=== PATIENT | female | born 1955 | race African-American/Black ===

== ENCOUNTER 2021-02-23 05:50 | Inpatient (IN) | payer MEDICARE ==
[2021-02-20 12:43] LABS: BASOPHILS # (AUTO) 0.1 (0.0-0.1); EOSINOPHILS # (AUTO) 0.4 (0.0-0.4); EOSINOPHILS % 4.5 % (0.0-6.0); HEMATOCRIT 31.7 % (34.2-44.1); HEMOGLOBIN 9.6 g/dL (12.0-16.0); LYMPHOCYTES # (AUTO) 2.5 (1.0-3.2); LYMPHOCYTES % 27.7 % (18.0-39.1); MEAN CORPUSCULAR HEMOGLOBIN 25.5 pg (28-32); MEAN CORPUSCULAR HGB CONC 30.3 g/dL (31-35); MEAN CORPUSCULAR VOLUME 84.1 fL (81-99); MONOCYTES # (AUTO) 0.8 (0.2-0.8); MONOCYTES % 8.3 % (4.4-11.3); NEUTROPHILS # (AUTO) 5.3 (2.1-6.9); NEUTROPHILS % 58.1 % (38.7-80.0); PLATELET COUNT 299 x10e3/uL (140-360); RED BLOOD COUNT 3.77 x10e6/uL (3.6-5.1); RED CELL DISTRIBUTION WIDTH 16.7 % (11.7-14.4)
[2021-02-20 13:04] LABS: CALCIUM 9.5 mg/dL (8.4-10.2); CREATININE, SERUM 1.64 mg/dL (0.57-1.11)
[~2021-02-23] VITALS: Ht 160 cm; Wt 127.0 kg
[~2021-02-23 05:50] MED LIST: AMLODIPINE BESY10 MG PO; ASPIRIN81 MG PO; FUROSEMIDE40 MG PO; IRBESARTAN150 MG PO; PRAVASTATIN SOD10 MG PO; TRESIBA FL200 UNIT/1 SC
[2021-02-23] MEDS ORDERED: LEVOFLOXACIN 500MG/D5W 100ML 100 ML IV ONE (06:35)
[2021-02-23] MEDS ORDERED: HYDROGEN PEROXIDE 120 ML BTL ONE (06:48)
[2021-02-23] MEDS ORDERED: BUPIVACAINE 0.25% 30ML SDV ONE (06:48)
[2021-02-23] MEDS ORDERED: ONDANSETRON HCL INJ 2MG/ML 2ML 2 MG/ML VIAL ONE (08:59)
[2021-02-23] MEDS ORDERED: METOCLOPRAMIDE HCL 10 MG/2ML VIAL ONE (08:59)
[2021-02-23] MEDS ORDERED: MORPHINE SULFATE INJ 2 MG/ML SYR IV PRN (10:15)
[2021-02-23] MEDS ORDERED: ONDANSETRON HCL INJ 2MG/ML 2ML 2 MG/ML VIAL IV PRN (10:15)
[2021-02-23 11:10] VITALS: BP 141/58
[2021-02-23 11:30] VITALS: BP 141/58
[2021-02-23 11:34] VITALS: BP 141/58
[2021-02-23] MEDS: LACTATED RINGER'S 1,000 ML INJ SCH ×2 (11:37→19:30)
[2021-02-23] MEDS ORDERED: ROCURONIUM BROMIDE 10 MG/ML 5ML VIAL IV ONE (12:03)
[2021-02-23] MEDS ORDERED: POVIDONE IODINE 0.05% 0.05 % ML PO ONE (12:03)
[2021-02-23] MEDS ORDERED: SEVOFLURANE INHAL SOLN 250 ML PEN BTL ONE (12:03)
[2021-02-23] MEDS ORDERED: PROPOFOL IV EMULSION 10 MG/ML 20 ML VIAL ONE (12:03)
[2021-02-23] MEDS ORDERED: LIDOCAINE HCL 2% LOCAL INJ 5 ML SDV VIAL INJ ONE (12:03)
[2021-02-23] MEDS ORDERED: FENTANYL CITRATE/PF 100MCG/2 ML INJ ONE (13:03)
[2021-02-23] MEDS ORDERED: MIDAZOLAM HCL 2 MG/2 ML VIAL ONE (13:03)
[2021-02-23 15:52] VITALS: BP 148/67
[2021-02-23] MEDS: HYDROCODONE/APAP 7.5MG-325MG 1 EA TAB PO PRN ×2 (16:47→21:00)
[2021-02-23] MEDS ORDERED: DEXTROSE 50% SYRINGE 50 ML IV PRN (19:00)
[2021-02-23 20:00] VITALS: BP 173/62
[2021-02-23] MEDS: ENOXAPARIN SODIUM INJ 100 MG/ML SYR SC SCH (20:00)
[2021-02-23] MEDS: INSULIN LISPRO 100 UNIT/1 ML 3ML VIAL SQ SCH (21:00)
[2021-02-23 23:20] VITALS: BP 173/62
[2021-02-24] VITALS: BP 159/65
[2021-02-24] MEDS: LACTATED RINGER'S 1,000 ML INJ SCH (03:46)
[2021-02-24 04:00] VITALS: BP 148/62
[2021-02-24 05:58] LABS: BASOPHILS % 0.1 % (0.0-1.0); HEMATOCRIT 27.4 % (34.2-44.1); HEMOGLOBIN 8.4 g/dL (12.0-16.0); LYMPHOCYTES # (AUTO) 1.3 (1.0-3.2); LYMPHOCYTES % 8.1 % (18.0-39.1); MEAN CORPUSCULAR HEMOGLOBIN 25.5 pg (28-32); MEAN CORPUSCULAR HGB CONC 30.7 g/dL (31-35); MONOCYTES # (AUTO) 1.2 (0.2-0.8); MONOCYTES % 7.6 % (4.4-11.3); NEUTROPHILS # (AUTO) 13.3 (2.1-6.9); NEUTROPHILS % 83.6 % (38.7-80.0); PLATELET COUNT 287 x10e3/uL (140-360); RED CELL DISTRIBUTION WIDTH 16.3 % (11.7-14.4)
[2021-02-24 06:14] LABS: ANION GAP 13.5 mmol/L (8-16); CALCIUM 8.8 mg/dL (8.4-10.2); CREATININE, SERUM 1.59 mg/dL (0.57-1.11); MAGNESIUM 2.2 MG/DL (1.3-2.1); POTASSIUM 5.5 mmol/L (3.5-5.1)
[2021-02-24] MEDS: HYDROCODONE/APAP 7.5MG-325MG 1 EA TAB PO PRN (07:07)
[2021-02-24] MEDS: INSULIN LISPRO 100 UNIT/1 ML 3ML VIAL SQ SCH ×2 (07:30→11:30)
[2021-02-24 07:50] VITALS: BP 144/55
[2021-02-24] MEDS: ENOXAPARIN SODIUM INJ 100 MG/ML SYR SC SCH (08:27)
[2021-02-24 08:55] VITALS: BP 144/55
== END 2021-02-24 12:00 | disposition home or self-care (01) | DRG 621 ==
LOC: OR 05:50 → PACU V 09:08 → MED/SURG 10:20
PROVIDERS: ADMIT Internal Medicine; ATTEND Internal Medicine
PROC: 0D164ZA Bypass Stomach to Jejunum, Percutaneous Endoscopic Approach (ICD-10-PCS; principal; 2021-02-23 07:30)
DX: E66.01 Morbid (severe) obesity due to excess calories (principal); K66.0 Peritoneal adhesions (postprocedural) (postinfection); Z68.42 Body mass index [BMI] 45.0-49.9, adult; E11.22 Type 2 diabetes mellitus with diabetic chronic kidney disease; I13.10 Hypertensive heart and chronic kidney disease without heart failure, with stage 1 through stage 4 chronic kidney disease, or unspecified chronic kidney disease; N18.30 Chronic kidney disease, stage 3 unspecified; D63.1 Anemia in chronic kidney disease; E87.5 Hyperkalemia; E78.5 Hyperlipidemia, unspecified; Z88.5 Allergy status to narcotic agent; Z88.0 Allergy status to penicillin; Z88.2 Allergy status to sulfonamides; Z79.82 Long term (current) use of aspirin; Z83.3 Family history of diabetes mellitus; Z82.49 Family history of ischemic heart disease and other diseases of the circulatory system; Z20.822 Contact with and (suspected) exposure to COVID-19
CPT/HCPCS: 36415; 71046; 80048; 82948; 83735; 84100; 85025; 93005; J1650; J1956; J2001; J2250; J2270; J2405; J2765; J3010; J7121; U0002